=== PATIENT | male | born 1990 | race Caucasian/White ===

== ENCOUNTER 2018-08-21 09:48 | Emergency (ER) | payer OTHER ==
[~2018-08-21] VITALS: Ht 188 cm; Wt 155.4 kg
[2018-08-21 10:09] VITALS: BP 119/82
== END 2018-08-21 10:51 | disposition home or self-care (01) ==
LOC: ED 10:45
DX: R04.0 Epistaxis (principal); B34.9 Viral infection, unspecified; Z87.891 Personal history of nicotine dependence
CPT/HCPCS: 71046; 99283